=== PATIENT | male | born 1945 | race Caucasian/White ===

== ENCOUNTER 2017-07-02 09:19 | Emergency (ER) | payer MEDICARE, OTHER ==
[~2017-07-02] VITALS: Wt 68.9 kg
[2017-07-02 09:50] LABS: MODE ROOM AIR; MetHgb Venous 0.2 %; Sample Type Blood venous; Venous COHb 0.2 %; Venous Fraction OxyHgb 49.1 %; Venous Total Hemglobin 15.8 g/dl
[2017-07-02 10:09] LABS: BASOPHIL # 0.1 10^3/ul (0.0-0.1); BASOPHILS % 0.7 % (0.0-2.0); EOSINOPHILS % 0.1 % (0.0-7.0); HEMATOCRIT 42.5 % (42.0-52.0); HEMOGLOBIN 14.3 g/dl (14.0-18.0); LYMPHOCYTES # 1.3 10^3/ul (0.8-2.9); LYMPHOCYTES % 10.9 % (15.0-51.0); MEAN CORPUSCULAR HEMOGLOBIN 29.9 pg (29.0-33.0); MEAN CORPUSCULAR HGB CONC 33.6 g/dl (32.0-37.0); MEAN CORPUSCULAR VOLUME 88.7 fl (82.0-101.0); MEAN PLATELET VOLUME 10.4 fl (7.4-10.4); MONOCYTE # 0.6 10^3/ul (0.3-0.9); MONOCYTES % 5.1 % (0.0-11.0); NEUTROPHIL # 10.1 10^3/ul (1.6-7.5); NEUTROPHILS % 82.8 % (39.0-77.0); PLATELET COUNT 343 10^3/UL (140-415); RED BLOOD COUNT 4.79 10^6/ul (4.70-6.10); RED CELL DISTRIBUTION WIDTH 12.3 % (11.5-14.5); WHITE BLOOD COUNT 12.3 10^3/ul (4.8-10.8)
[2017-07-02 10:28] LABS: CALCIUM 9.5 mg/dl (8.4-10.2); CREATININE 0.93 mg/dl (0.61-1.24); POTASSIUM 4.6 mmol/L (3.5-5.1)
[2017-07-02 10:39] LABS: ADD UMIC NO; UR ASCORBIC ACID NEGATIVE (NEGATIVE); UR BILIRUBIN (Dip) NEGATIVE (NEGATIVE); UR BLOOD (Dip) NEGATIVE (NEGATIVE); UR CLARITY CLEAR (CLEAR); UR COLOR STRAW (YELLOW); UR GLUCOSE (Dip) 3+ mg/dL (NEGATIVE); UR KETONES (Dip) 2+ mg/dL (NEGATIVE); UR LEUKOCYTE ESTERASE (Dip) NEGATIVE Leu/ul (NEGATIVE); UR NITRITE (Dip) NEGATIVE (NEGATIVE); UR SPECIFIC GRAVITY (Dip) 1.029 (1.003-1.030); UR TOTAL PROTEIN (Dip) NEGATIVE (NEGATIVE); UR UROBILINOGEN (Dip) NEGATIVE (NEGATIVE)
[2017-07-02 10:45] VITALS: RESP 18
[2017-07-02 11:34] VITALS: BP 137/83; PULSE 74
[2017-07-02] MEDS ORDERED: LEVO112T57 PO (11:51)
[2017-07-02] MEDS ORDERED: DONE10TA7 PO ×2 (11:52→13:22)
[2017-07-02] MEDS ORDERED: AMLO5TAB4 PO (11:52)
[2017-07-02] MEDS ORDERED: INSU100C SQ (11:53)
[2017-07-02] MEDS ORDERED: VALS320T11 PO (11:54)
[2017-07-02] MEDS ORDERED: ESOM20CA PO (11:54)
[2017-07-02] MEDS ORDERED: FINA5TAB4 PO (11:54)
--- NOTE | 2017-07-02 11:54 | ERD ---
ER Documentation Chief Complaint Chief Complaint PT OVERDOSED ON HOME MEDS HPI This is a very pleasant 71-year-old male who is visiting from out of town who accidentally took an extra doses of his regular medications. The patient took 5 tablets of his daily donepezil and 5 tablets of his daily atorvastatin. This was approximately 1.5 hours prior to arrival. The family called poison control center who recommended that the patient come to the emergency room for evaluation observation. This is not an intentional overdose. The patient accidentally took this medication. They are very clear that the patient only took 5 tablets as this was his number of tablets brought from home. The patient does have hyperglycemia at triage but states that he has not had his morning medications. He is an insulin-dependent diabetic. At this point he denies any headache chest pain or shortness breath, no nausea or vomiting. He has no symptoms. ROS All systems reviewed and are negative except as per history of present illness. Medications Home Meds Active Scripts Donepezil* (Donepezil*) 10 Mg Tablet, 10 MG PO DAILY, #7 TAB Prov:SHANE VERDUGO MD 07/02/17 Atorvastatin Calcium* (Atorvastatin Calcium*) 20 Mg Tablet, 20 MG PO DAILY, #7 TAB Prov:SHANE VERDUGO MD 07/02/17 Reported Medications Ipratropium [place]* (Atrovent HFA*) 12.9 Gm Aer.w.adap, 2 PUFF INHALATION QID, #1 INHALER 07/02/17 Insulin Glargine* (Lantus*) 100 Unit/Ml Soln, 0-20 UNIT SC DAILY, #1 VIAL 07/02/17 Valsartan* (Diovan*) 320 Mg Tablet, 320 MG PO DAILY, TAB 07/02/17 Esomeprazole Mag Trihydrate (Nexium) 20 Mg Capsule.dr, 20 MG PO AC BREAKFAST, # 30 CAP 07/02/17 Finasteride* (Finasteride*) 5 Mg Tablet, 5 MG PO DAILY, TAB 07/02/17 Insulin Lispro (Humalog) 100 Unit/1 Ml Cartridge, 0-20 UNIT SQ AC MEALS 07/02/17 Donepezil* (Aricept*) 10 Mg Tablet, 10 MG PO DAILY, TAB 07/02/17 Amlodipine Besylate* (Norvasc*) 5 Mg Tablet, 5 MG PO DAILY, TAB 07/02/17 Levothyroxine Sodium* (Levothyroxine Sodium*) 112 Mcg Tablet, 112 MCG PO BEFORE BREAKFAST, #30 TAB 07/02/17 Allergies Allergies: Coded Allergies: No Known Allergy (Unverified , 07/02/17) FmHx Family History: diabetes Physical Exam Vitals Vital Signs Date Time Temp Pulse Resp B/P Pulse Ox O2 Delivery O2 Flow Rate FiO2 07/02/17 11:34 74 137/83 07/02/17 10:45 78 18 171/74 07/02/17 09:23 98.1 86 17 186/80 99 Physical Exam General: Well developed, well nourished, no acute distress Head: Normocephalic, atraumatic. Eyes: Pupils equally reactive, EOM intact ENT: Moist mucous membranes Neck: Supple, no lymphadenopathy Respiratory: Lungs clear bilaterally, no distress Cardiovascular: RRR, no murmurs, rubs, or gallops Abdominal: Soft, non-tender, non-distended, no peritoneal signs : Deferred MSK: No edema, no unilateral swelling, 5/5 strength Neurologic: Alert and oriented, moving all extremities, normal speech, no focal weakness, no cerebellar signs Skin: No rash Psych: Normal mood Result Diagram: 07/02/17 0949 07/02/17 0949 Results 24 hrs Laboratory Tests Test 07/02/17 09:33 07/02/17 09:49 07/02/17 10:25 Blood Gas Specimen Source Blood venous Arterial Blood Date Drawn 07/02/2017 9:40:16 AM Arterial Blood Gas Puncture Site VENOUS LINE Sebastian Test N/A Venous Blood pH 7.330 Venous Blood pCO2 (Temp Corrected) 41.0mmHG Venous Blood pO2 (Temp Corrected) 27.5mmHG Venous Blood HCO3 21.1mmol/L Venous Blood Oxygen Saturation 49.3mmHG Venous Blood Base Excess -4.5mmol/L Venous Blood Total Hemoglobin 15.8g/dl Venous Blood Oxyhemoglobin 49.1% Venous Blood Methemoglobin 0.2% Carboxyhemoglobin 0.2% Blood Gas Temperature 37.0C Blood Gas Modality ROOM AIR FiO2 21.0% Blood Gas Notified Whom Elizabeth Blood Gas Notified Time 07/02/2017 9:49:55 AM White Blood Count 12.310^3/ul Red Blood Count 4.7910^6/ul Hemoglobin 14.3g/dl Hematocrit 42.5% Mean Corpuscular Volume 88.7fl Mean Corpuscular Hemoglobin 29.9pg Mean Corpuscular Hemoglobin Concent 33.6g/dl Red Cell Distribution Width 12.3% Platelet Count 65378^3/UL Mean Platelet Volume 10.4fl Neutrophils % 82.8% Lymphocytes % 10.9% Monocytes % 5.1% Eosinophils % 0.1% Basophils % 0.7% Nucleated Red Blood Cells % 0.0/100WBC Neutrophils # 10.110^3/ul Lymphocytes # 1.310^3/ul Monocytes # 0.610^3/ul Eosinophils # 0.010^3/ul Basophils # 0.110^3/ul Nucleated Red Blood Cells # 0.010^3/ul Sodium Level 139mmol/L Potassium Level 4.6mmol/L Chloride Level 99mmol/L Carbon Dioxide Level 25mmol/L Anion Gap 20 Blood Urea Nitrogen 24mg/dl Creatinine 0.93mg/dl Glucose Level 468mg/dl Calcium Level 9.5mg/dl Urine Color STRAW Urine Clarity CLEAR Urine pH 5.0 Urine Specific [place] 1.029 Urine Ketones 2+mg/dL Urine Nitrite NEGATIVEmg/dL Urine Bilirubin NEGATIVEmg/dL Urine Urobilinogen NEGATIVEmg/dL Urine Leukocyte Esterase NEGATIVELeu/ul Urine Hemoglobin NEGATIVEmg/dL Urine Glucose 3+mg/dL Urine Total Protein NEGATIVEmg/dl Procedures/MDM EKG, MONITORS, & DIAGNOSTIC IMAGING: EKG: I reviewed and interpreted a 12-lead EKG. Rhythm: Normal sinus rhythm Ectopy: None Intervals: No abnormalities, normal QRS and QTC ST segments: No elevations or depressions T waves: No contiguous inversions LAB INTERPRETATION: Hyperglycemia without evidence of diabetic ketoacidosis MEDICAL DECISION MAKING: The patient presents with accidental ingestion of 5 tablets of donepezil and 5 tablets of atorvastatin. This is his regular medication and regular dosing. He has no myalgias no nausea or vomiting. He has slight hypertension which can be seen in donepezil ingestion. I was able to speak to poison control center. The strongest concern is for bradycardia. The patient has no bradycardia in the emergency room, no evidence of QRS or QTC prolongation. The patient is otherwise asymptomatic. Recommendation is for 4 hours of observation. The patient is not a candidate for activated charcoal given greater than 1 hours since ingestion. ER COURSE: The patient has hyperglycemia but did not take his regular medications. He has no evidence of diabetic ketoacidosis and was advised to take his regular sliding scale dose. This was provided by the family in the emergency room. He was given a complex carbohydrate meal. The patient will be observed for 4 hours to rule out bradycardia or clinically significant toxicologic process related to his ingestion. If the patient does not have any symptoms related to this ingestion the patient can be safely discharged with close follow-up. The family is requesting refills for 5 tablets of donepezil and atorvastatin as this is the only medication they brought for their trip. Observation Note: Indication: Rule out toxicologic ingestion Duration: Greater than 4 hours Family history: Diabetes The patient was observed with serial exams over the above timeframe. The patient continued to be well-appearing, and observation continued without complication. I kept the patient and/or family informed of laboratory and diagnostic imaging results throughout the emergency room course. DISPOSITION PLAN: We discussed follow up with the patient's primary care doctor within 24 to 48 hours as needed. We also discussed return to the emergency room for worsening symptoms or worsening condition. Outpatient referral: [None required] Discharge Medications: Home dosing of Aricept and atorvastatin for 7 days Departure Diagnosis: Primary Impression: Accidental overdose Encounter type: initial encounter Qualified Code: T50.901A - Accidental overdose, initial encounter Additional Impression: Hyperglycemia Condition: Stable SHANE VERDUGO MD Jul 02, 2017 11:54
[2017-07-02] MEDS ORDERED: LANT3I SC (11:55)
[2017-07-02] MEDS ORDERED: IPRA12.93 INHALATION (11:56)
[2017-07-02] MEDS ORDERED: ATOR20TA38 PO (13:22)
== END 2017-07-02 14:06 | disposition home or self-care (01) ==
LOC: E/R 09:19
DX: T44.0X1A Poisoning by anticholinesterase agents, accidental (unintentional), initial encounter (principal); T46.6X1A Poisoning by antihyperlipidemic and antiarteriosclerotic drugs, accidental (unintentional), initial encounter; E11.9 Type 2 diabetes mellitus without complications; Z79.4 Long term (current) use of insulin
CPT/HCPCS: 36415; 80048; 81003; 82803; 85025

== ENCOUNTER 2017-07-04 17:47 | Inpatient (IN) | payer MEDICARE, OTHER ==
[~2017-07-04] VITALS: Ht 167.6 cm; Wt 66.0 kg
[~2017-07-04 17:47] MED LIST: AMLO5TAB4 PO; ATOR20TA38 PO; DONE10TA7 PO; ESOM20CA PO; FINA5TAB4 PO; INSU100C SQ; IPRA12.93 INHALATION; LANT3I SC; LEVO112T57 PO; VALS320T11 PO
[2017-07-04] MEDS ORDERED: SOD CHLORIDE 0.9% 1,000 ML IV STA (18:26)
[2017-07-04] MEDS ORDERED: INSULIN REGULAR 10 ML INJ SC ONE (18:30)
--- NOTE | 2017-07-04 18:42 | ERD ---
ER Documentation Chief Complaint Chief Complaint vomitting today, seen on wednesday for accidental od of medication HPI Patient is a 71-year-old male with history of type 1 diabetes and dementia who presents to the ER for 2 episodes of vomiting and appearing to be slightly off balance today. His states that he has wanted to lie down and feels better when he lies down. She denies fever, diarrhea, abdominal pain, headache, slurred speech, focal weakness. The patient was seen in the ER for an accidental overdose 2 days ago, during which she took 5 days worth of his medication. Yesterday he appeared well and had no complaints. ROS All systems reviewed and are negative except as per history of present illness. Medications Home Meds Active Scripts Atorvastatin Calcium* (Atorvastatin Calcium*) 20 Mg Tablet, 20 MG PO DAILY, #7 TAB Prov:SHANE VERDUGO MD 07/02/17 Reported Medications Insulin Lispro (Humalog Kwikpen) 200 Unit/1 Ml Insuln.pen, 0 SQ AC MEALS, EA SLIDING SCALE 07/04/17 Insulin Glargine* (Lantus*) 100 Unit/Ml Soln, 0 SC DAILY, #1 VIAL SLIDING SCALE 07/04/17 Ipratropium [place]* (Atrovent HFA*) 12.9 Gm Aer.w.adap, 2 PUFF INHALATION QID, #1 INHALER 07/02/17 Valsartan* (Diovan*) 320 Mg Tablet, 320 MG PO DAILY, TAB 07/02/17 Esomeprazole Mag Trihydrate (Nexium) 20 Mg Capsule.dr, 20 MG PO AC BREAKFAST, # 30 CAP 07/02/17 Finasteride* (Finasteride*) 5 Mg Tablet, 5 MG PO DAILY, TAB 07/02/17 Donepezil* (Aricept*) 10 Mg Tablet, 10 MG PO DAILY, TAB 07/02/17 Amlodipine Besylate* (Norvasc*) 5 Mg Tablet, 5 MG PO DAILY, TAB 07/02/17 Levothyroxine Sodium* (Levothyroxine Sodium*) 112 Mcg Tablet, 112 MCG PO BEFORE BREAKFAST, #30 TAB 07/02/17 Discontinued Reported Medications Insulin Glargine* (Lantus*) 100 Unit/Ml Soln, 0-20 UNIT SC DAILY, #1 VIAL 07/02/17 Insulin Lispro (Humalog) 100 Unit/1 Ml Cartridge, 0-20 UNIT SQ AC MEALS 07/02/17 Discontinued Scripts Donepezil* (Donepezil*) 10 Mg Tablet, 10 MG PO DAILY, #7 TAB Prov:SHANE VERDUGO MD 07/02/17 Allergies Allergies: Coded Allergies: Penicillins (Unverified Allergy, Unknown, rash, 07/04/17) codeine (Unverified Allergy, Unknown, 07/04/17) PMhx/Soc Past medical history: Diabetes mellitus, hypertension, hypothyroidism, dementia , BPH Past surgical history: Resection of oral cancer, shoulder surgery, skin cancer resection Social history: Drinks occasional alcohol, remote history of small amount of tobacco smoking FmHx Noncontributory Physical Exam Vitals Vital Signs Date Time Temp Pulse Resp B/P Pulse Ox O2 Delivery O2 Flow Rate FiO2 07/04/17 20:30 109 18 132/57 100 Room Air 07/04/17 18:14 94 148/55 97 Room Air 07/04/17 17:48 98.4 95 18 132/61 97 Physical Exam Const: Alert, no acute distress Head: Atraumatic Eyes: Normal Conjunctiva, No pallor, no icterus ENT: Normal External Ears, Nose and Mouth. Dry mucous membranes Neck: Full range of motion..~ No meningismus. No JVD Resp: Clear to auscultation bilaterally, No wheezes, no rales Cardio: Bradycardia, irregularly irregular rhythm, no murmurs Abd: Soft, non tender, non distended. Skin: No petechiae or rashes Back: No midline or flank tenderness Ext: No cyanosis, or edema Neur: Awake and alert, Cranial nerves II through XII intact bilaterally, strength and sensation full in 4 extremities. No pronator drift, no dysmetria Psych: Normal Mood and Affect Result Diagram: 07/04/171909 Results 24 hrs Laboratory Tests Test 07/04/17 18:13 07/04/17 19:10 07/04/17 19:16 07/04/17 20:00 Bedside Glucose > 595mg/dL > 595mg/dL White Blood Count 17.610^3/ul Red Blood Count 4.5010^6/ul Hemoglobin 13.5g/dl Hematocrit 43.2% Mean Corpuscular Volume 96.0fl Mean Corpuscular Hemoglobin 30.0pg Mean Corpuscular Hemoglobin Concent 31.3g/dl Red Cell Distribution Width 12.5% Platelet Count 59663^3/UL Mean Platelet Volume 10.9fl Neutrophils % 88.2% Lymphocytes % 6.3% Monocytes % 4.3% Eosinophils % 0.0% Basophils % 0.5% Nucleated Red Blood Cells % 0.0/100WBC Neutrophils # 15.510^3/ul Lymphocytes # 1.110^3/ul Monocytes # 0.810^3/ul Eosinophils # 0.010^3/ul Basophils # 0.110^3/ul Nucleated Red Blood Cells # 0.010^3/ul Urine Color STRAW Urine Clarity CLEAR Urine pH 5.0 Urine Specific [place] 1.021 Urine Ketones 2+mg/dL Urine Nitrite NEGATIVEmg/dL Urine Bilirubin NEGATIVEmg/dL Urine Urobilinogen NEGATIVEmg/dL Urine Leukocyte Esterase NEGATIVELeu/ul Urine Microscopic RBC 3/HPF Urine Microscopic WBC 1/HPF Urine Bacteria FEW/HPF Urine Mucus FEW/HPF Urine Yeast (Budding) FEW/HPF Urine Hemoglobin 1+mg/dL Urine Glucose 3+mg/dL Urine Total Protein NEGATIVEmg/dl Test 07/04/17 20:15 Bedside Glucose 587mg/dL Current Medications Medications (Trade) Dose Ordered Sig/Ney Route PRN Reason Start Time Stop Time Status Last Admin Dose Admin Sodium Chloride (NS) 1,000 ml @ 1,000 mls/hr Q1H STAT IV 07/04/17 18:26 07/04/17 19:25 DC 07/04/17 19:18 Insulin Human Regular (Novolin-R) 10 unit ONCE ONCE SC 07/04/17 18:30 07/04/17 18:41 DC Insulin Human Lispro (Humalog) 10 unit ONCE ONCE SC 07/04/17 19:00 07/04/17 19:01 DC 07/04/17 19:20 Ondansetron HCl (Zofran Inj) 4 mg ONCE STAT IV 07/04/17 19:47 07/04/17 20:10 DC Metoclopramide HCl 10 mg 10 mg ONCE ONCE IV 07/04/17 20:30 07/04/17 20:31 DC 07/04/17 20:20 Sodium Chloride (NS) 1,000 ml @ 1,000 mls/hr Q1H ONCE IV 07/04/17 20:30 07/04/17 21:29 Procedures/MDM EKG read by me: Time 1843, rate 100 Rhythm: Normal sinus [place]: Normal Intervals: Normal ST-T waves: no ischemic changes, subtle nonspecific STT wave changes in lateral leads Ectopy: No Q-waves: No Impression: No evidence of ischemia or arrhythmia MDM: Patient is a 71-year-old male who presents to the ER with several episodes of vomiting and decreased energy for 1 day. His initially stated that his mental status was at baseline, which includes confusion due to underlying dementia. His daughter, however, states that he has been more confused today and is not following instructions appropriately. On my exam, the patient does not have any focal neurological findings. He does not have any speech abnormality. He does have some difficulty following commands and appears confused. His workup reveals hyperglycemia. Clinically he appears dehydrated. He has ketones on urinalysis. I am awaiting electrolytes to evaluate for renal insufficiency, DKA, and other abnormalities. His EKG is nonischemic. I am awaiting a troponin. CT scan of the head was performed, and on my preliminary evaluation, there is volume loss but no acute bleed or mass. A chest x-ray is pending. Serum ketones are pending. The patient was given IV fluids and subcutaneous insulin. His urine does not show signs of infection. He has leukocytosis but does not have physical exam findings suggestive of infectious source. He has normal vital signs. His vomiting may be due to underlying DKA, gastrointestinal infection, or gastroparesis. He has a benign abdominal exam. The patient was signed out to Dr. Putnam at the end of my shift with plan to follow-up on electrolytes and radiology reads, and admit the patient for further hydration and workup of altered mental status. Departure Diagnosis: Primary Impression: Nausea and vomiting Vomiting type: unspecified Vomiting Intractability: unspecified Qualified Code: R11.2 - Nausea and vomiting, intractability of vomiting not specified, unspecified vomiting type Additional Impressions: Hyperglycemia due to type 1 diabetes mellitus Dehydration Altered mental status Altered mental status type: coma Coma depth: Marjan coma 13-15 Coma timing : in the field (EMT or ambulance) Qualified Code: R40.2411 - [place] coma scale total score 13-15, in the field (EMT or ambulance) Condition: CINDY Kirkland MD Jul 04, 2017 18:42
[2017-07-04] MEDS ORDERED: LANT3I SC (18:46)
[2017-07-04] MEDS ORDERED: INSU200I SQ (18:47)
[2017-07-04] MEDS ORDERED: INSULIN LISPRO 100 UNIT/ML VIAL SC ONE (19:00)
[2017-07-04 19:25] LABS: BASOPHIL # 0.1 10^3/ul (0.0-0.1); BASOPHILS % 0.5 % (0.0-2.0); HEMATOCRIT 43.2 % (42.0-52.0); HEMOGLOBIN 13.5 g/dl (14.0-18.0); LYMPHOCYTES # 1.1 10^3/ul (0.8-2.9); LYMPHOCYTES % 6.3 % (15.0-51.0); MEAN CORPUSCULAR HGB CONC 31.3 g/dl (32.0-37.0); MEAN PLATELET VOLUME 10.9 fl (7.4-10.4); MONOCYTE # 0.8 10^3/ul (0.3-0.9); MONOCYTES % 4.3 % (0.0-11.0); NEUTROPHIL # 15.5 10^3/ul (1.6-7.5); NEUTROPHILS % 88.2 % (39.0-77.0); PLATELET COUNT 387 10^3/UL (140-415); RED CELL DISTRIBUTION WIDTH 12.5 % (11.5-14.5); WHITE BLOOD COUNT 17.6 10^3/ul (4.8-10.8)
[2017-07-04] MEDS ORDERED: ONDANSETRON 4 MG INJ IV STA (19:47)
[2017-07-04] MEDS ORDERED: METOCLOPRAMIDE 10 MG INJ IV ONE (20:30)
[2017-07-04] MEDS ORDERED: SOD CHLORIDE 0.9% 1,000 ML IV ONE (20:30)
[2017-07-04 20:37] LABS: ADD UMIC YES; UR ASCORBIC ACID NEGATIVE (NEGATIVE); UR BACTERIA FEW /HPF (NONE SEEN); UR BILIRUBIN (Dip) NEGATIVE (NEGATIVE); UR BLOOD (Dip) 1+ mg/dL (NEGATIVE); UR BUDDING YEAST FEW /HPF (NONE SEEN); UR CLARITY CLEAR (CLEAR); UR COLOR STRAW (YELLOW); UR GLUCOSE (Dip) 3+ mg/dL (NEGATIVE); UR KETONES (Dip) 2+ mg/dL (NEGATIVE); UR LEUKOCYTE ESTERASE (Dip) NEGATIVE Leu/ul (NEGATIVE); UR MUCUS FEW /HPF (NONE SEEN); UR NITRITE (Dip) NEGATIVE (NEGATIVE); UR RBC 3 /HPF (0-5); UR SPECIFIC GRAVITY (Dip) 1.021 (1.003-1.030); UR TOTAL PROTEIN (Dip) NEGATIVE (NEGATIVE); UR UROBILINOGEN (Dip) NEGATIVE (NEGATIVE)
[2017-07-04 21:07] LABS: ALANINE AMINOTRANSFERASE 32 IU/L (13-69); ALBUMIN 4.2 g/dl (3.3-4.9); ALKALINE PHOSPHATASE 83 IU/L (42-121); ANION GAP 40 (8-16); ASPARTATE AMINO TRANSFERASE 36 IU/L (15-46); BILIRUBIN,INDIRECT 0.3 mg/dl (0-1.1); BILIRUBIN,TOTAL 0.3 mg/dl (0.2-1.3); BLOOD UREA NITROGEN 29 mg/dl (7-20); CALCIUM 9.7 mg/dl (8.4-10.2); CHLORIDE 101 mmol/L (97-110); SODIUM 140 mmol/L (135-144); TOTAL PROTEIN 7.2 g/dl (6.1-8.1)
[2017-07-04 21:22] LABS: GLUCOSE 673 mg/dl (70-220)
[2017-07-04] MEDS ORDERED: INSULIN HUMAN REGULAR 100 UNIT in SOD CHLORIDE 0.9% 99 ML IV STA (21:22)
[2017-07-04 21:23] LABS: CARBON DIOXIDE 5 mmol/L (21-31); POTASSIUM 6.3 mmol/L (3.5-5.1)
[2017-07-04 21:28] LABS: TROPONIN-I < 0.010 ng/ml (0.00-0.12)
[2017-07-04] MEDS ORDERED: LACTATED RINGER'S 1,000 ML IV ONE ×2 (21:30)
--- NOTE | 2017-07-04 21:41 | RADRPT ---
PROCEDURE: XR Chest. CLINICAL INDICATION: Shortness of breath. Weakness. TECHNIQUE: Single frontal view. COMPARISON: None. FINDINGS: The lungs are clear. The heart size is normal. There is calcification in the aorta consistent with atherosclerosis. There is no pleural effusion. There is no pneumothorax. IMPRESSION: 1. Atherosclerosis. 2. Otherwise normal chest radiograph. RPTAT: QQ .Torin Grover MD, MD Date Time Electronically viewed and signed by .Torin Grover MD, MD on 07/04/2017 21:40 .R/
--- NOTE | 2017-07-04 21:43 | RADRPT ---
PROCEDURE: Noncontrast CT Head. CLINICAL INDICATION: Altered level of consciousness TECHNIQUE: Noncontrast CT of the head was obtained. The administered radiation dose was CTDI vol = 45.01 mGy, DLP = 720.23 mGy-cm. One or more of the following dose reduction techniques were used: Au tomated exposure control, Adjustment of the mA and/or kV according to patient size, or Use of iterat susan reconstruction technique. COMPARISON: There are no similar studies submitted for comparison. FINDINGS: There is no acute intracranial hemorrhage, midline shift, or mass effect. The cerebral montes-white ma tter differentiation appears preserved. No extra-axial collection is seen. There is moderate diffuse cerebral volume loss with compensatory diffuse cerebral sulcal and ventricular enlargement. Mild lo w attenuation in the periventricular and deep cerebral white matter is nonspecific, but suggestive o f mild chronic microangiopathic change. The basal cisterns are preserved. There is mild diffuse cere bellar volume loss. There is intracranial calcific atherosclerotic disease involving the internal ca rotid arteries bilaterally. The visualized paranasal sinuses and mastoid air cells are clear. No dep ressed calvarial fracture or suspicious osseous lesion is identified. There is mild subcutaneous sof t tissue edema of the right frontal temporal scalp. IMPRESSION: 1. No evidence of an acute intracranial process. 2. Moderate diffuse cerebral volume loss and mild diffuse cerebellar volume loss. 3. Evidence of mild chronic microangiopathic cerebral white matter change. 4. Intracranial calcific atherosclerotic disease. 5. Mild subcutaneous soft tissue edema of the right frontal temporal scalp. RPTAT: HR[facility] Physician Coni Date Time Electronically viewed and signed by Physician Coni on 07/04/2017 21:43 REGULO/
[2017-07-04] MEDS ORDERED: INSULIN HUMAN REGULAR 50 UNIT in SOD CHLORIDE 0.9% 49.5 ML IV STA (21:48)
[2017-07-04 22:34] LABS: CALCIUM 9.3 mg/dl (8.4-10.2); CREATININE 1.29 mg/dl (0.61-1.24); POTASSIUM 5.9 mmol/L (3.5-5.1)
--- NOTE | 2017-07-04 22:57 | EN ---
Date/Time of Note Date/Time of Note DATE: 07/04/17 TIME: 22:50 ER Progress Note I was signed out the care of this elderly male with a very high sugar, and he was awaiting crucial laboratories. He had not had chemistries returned yet. I receive the chemistries and the patient had hyperkalemia as well as evidence of significant diabetic ketoacidosis. Mainly ordered additional IV fluids in the form of lactated Ringer's as were out of normal saline. I also started on insulin drip and ordered additional laboratories for treatment of DKA. Spoke at the bedside for at least 15 minutes with the patient's when many questions about diabetic ketoacidosis and how she could have possibly prevented it. Patient's first subsequent blood draw shows good progression to correction of the diabetic ketoacidosis. Return of the patient's bed to reassess his status and is improving. Spoke with Dr. Keller he will be admitting the patient to the intensive care unit. Care time greater than 35 minutes: This includes treatment of diabetic ketoacidosis, careful and copious fluid administration, use of insulin drip, interpretation of multiple recurrent laboratories and treatment of unstable vital signs, subsequently chart review, discussion with patient's and admitting doctor. This does not include any billable procedures. NATASHA HAUSER DO Jul 04, 2017 22:57
[2017-07-04] MEDS ORDERED: SOD CHLORIDE 0.9% 1,000 ML IV SCH (23:28)
[2017-07-04] MEDS ORDERED: DEXTROSE 50% 50 ML SYRINGE IV PRN ×2 (23:30)
[2017-07-04] MEDS ORDERED: ACETAMINOPHEN 650MG/20.3ML CUP PO PRN (23:30)
[2017-07-04] MEDS ORDERED: INSULIN HUMAN REGULAR 50 UNIT in SOD CHLORIDE 0.9% 49.5 ML IV SCH (23:30)
[2017-07-04] MEDS: ACCU-CHEK XX SCH (23:30)
[2017-07-05] VITALS (23 sets, daily range): BP systolic 112–142; BP diastolic 48–99; PULSE 69–95; RESP 13–25; TEMP 98.5; Ht 167.6 cm; Wt 66.0 kg
[2017-07-05] LABS: Arterial Base Excess -12.5 mmol/L (-3.0-3); Arterial COHb 0.3 % (0.0-3.0); Arterial Fraction of Oxyhgb 97.9 % (93.0-99.0); Arterial HCO3 10.9 mmol/L (22.0-26.0); Arterial MetHb 0.3 % (0.0-1.5); Arterial Total Hemglobin 12.4 g/dl (12.0-18.0); MODE ROOM AIR
[2017-07-05] MEDS ORDERED: LACTATED RINGER'S 1,000 ML IV SCH (00:28)
[2017-07-05] MEDS: ACCU-CHEK XX SCH ×11 (00:30→10:27)
[2017-07-05 00:49] LABS: CALCIUM 9.4 mg/dl (8.4-10.2); CREATININE 1.02 mg/dl (0.61-1.24); POTASSIUM 5.1 mmol/L (3.5-5.1)
[2017-07-05] MEDS: ALBUTEROL/IPRATROPIUM (NEB) 3 ML AMP NEB SCH ×4 (01:00→13:16)
[2017-07-05] MEDS ORDERED: FLUCONAZOLE 100 MG/NS (PMX) 50 ML IVPB SCH ×2 (01:00)
[2017-07-05] MEDS ORDERED: SOD CHLORIDE 0.9% IV SCH (01:28)
[2017-07-05] MEDS ORDERED: POTASSIUM CHLORIDE IV SCH (01:28)
[2017-07-05] MEDS: DEXTROSE 5%-0.45% NACL 1,000 ML IV SCH ×2 (03:18→13:14)
[2017-07-05 03:47] LABS: CREATININE 0.89 mg/dl (0.61-1.24); POTASSIUM 4.2 mmol/L (3.5-5.1)
[2017-07-05 04:58] LABS: AADO2 Arterial 17.8 mmHg (7.0-24.0); Arterial Base Excess -2.8 mmol/L (-3.0-3); Arterial COHb 0.3 % (0.0-3.0); Arterial Fraction of Oxyhgb 96.8 % (93.0-99.0); Arterial HCO3 20.5 mmol/L (22.0-26.0); Arterial MetHb 0.3 % (0.0-1.5); Arterial Total Hemglobin 12.2 g/dl (12.0-18.0); MODE ROOM AIR
[2017-07-05] MEDS: CIPROFLOXACIN 400MG/D5W 200 ML IVPB SCH ×3 (05:39→09:57)
[2017-07-05 05:48] LABS: ALBUMIN 3.3 g/dl (3.3-4.9); ALBUMIN/GLOBULIN RATIO 1.37; BILIRUBIN,INDIRECT 0.4 mg/dl (0-1.1); BILIRUBIN,TOTAL 0.4 mg/dl (0.2-1.3); CALCIUM 8.8 mg/dl (8.4-10.2); CREATININE 0.84 mg/dl (0.61-1.24); MAGNESIUM 2.1 mg/dl (1.7-2.5); PHOSPHORUS 1.9 mg/dl (2.5-4.9); POTASSIUM 3.8 mmol/L (3.5-5.1); TOTAL PROTEIN 5.7 g/dl (6.1-8.1)
--- NOTE | 2017-07-05 06:32 | HP ---
Date/Time of Note Date/Time of Note DATE: 07/05/17 TIME: 06: Assessment/Plan VTE Prophylaxis VTE Prophylaxis Intervention: heparin Lines/Catheters IV Catheter Type (from Nrs): Peripheral IV Urinary Cath still in place: No Assessment/Plan Assessment/Plan ASSESSMENT 71-year-old male with a history of hypertension, type 1 diabetes, hypothyroidism , dyslipidemia, dementia, BPH with nausea/vomiting and generalized weakness found to be in severe DKA PLAN Insulin with DKA protocol ICU admission Correct electrolytes as needed Resume outpatient medications HPI/ROS Admit Date/Time Admit Date/Time Jul 04, 2017 at 21:51 Hx of Present Illness This is a 71-year-old male with a history of hypertension, type 1 diabetes, hypothyroidism, dyslipidemia, dementia, BPH who presents to the ER complaining of nausea/vomiting and generalized weakness. When he presented to the ER, he was found to be in severe DKA and was started on insulin was DKA protocol. Patient seems to be compliant with his medications. PMH/Family/Social Social History Smoking Status: Unknown if ever smoked Exam/Review of Systems Vital Signs Vitals Vital Signs Date Time Temp Pulse Resp B/P Pulse Ox O2 Delivery O2 Flow Rate FiO2 07/05/17 05:30 89 14 138/55 100 07/05/17 05:05 21 07/05/17 01:00 98.0 Room Air Intake and Output 07/04/17 07/04/17 07/05/17 14:59 22:59 06:59 Output Total 700 ml Balance -700 ml Exam Constitutional: other (No acute distress) Head: atraumatic, normocephalic Eyes: EOMI, PERRL Respiratory: clear to auscultation, normal air movement Cardiovascular: nl pulses, regular rate and rhythm Gastrointestinal: non-tender, soft Extremities: normal pulses Labs Result Diagram: 07/04/17 1910 07/05/17 0450 Medications Medications Current Medications Acetaminophen (Tylenol Liquid) 650 mg Q6H PRN PO PAIN LEVEL 1-3 OR FEVER; Start 07/04/17 at 23:30 Famotidine (Pepcid Iv) 20 mg Q12 IV ; Start 07/05/17 at 09:00 Heparin Sodium (Porcine) (Heparin (5000 Units/0.5 ml)) 5,000 unit Q12 SC ; Start 07/05/17 at 09:00 Dextrose (D50w Syringe) 50 ml Q15M PRN IV For BS 50 or less; Start 07/04/17 at 23:30 Dextrose (D50w Syringe) 25 ml Q15M PRN IV BS between 50-70; Start 07/04/17 at 23:30 Diagnostic Test (Pha) 1 ea 1 ea Q1H XX Last administered on 07/05/17 05:39; Admin Dose 1 EA; Start 07/04/17 at 23:30 Ciprofloxacin/ Dextrose 200 ml @ 200 mls/hr Q12 IVPB Last administered on 05:39; Admin Dose 200 MLS/HR; Start 07/05/17 at 00:00 Fluconazole/ Sodium Chloride 50 ml @ 50 mls/hr Q24H IVPB Last administered on 07/05/17 02:34; Admin Dose 50 MLS/HR; Start 07/05/17 at 01:00 Dextrose/Sodium Chloride (D5-1/2ns) 1,000 ml @ 100 mls/hr Q10H IV Last administered on 07/05/17 03:18; Admin Dose 100 MLS/HR; Start 07/05/17 at 03: 00 CHINEDU LACY MD Jul 05, 2017 06:32
[2017-07-05] MEDS ORDERED: INSULIN HUMAN REGULAR 100 UNIT in SOD CHLORIDE 0.9% 99 ML IV SCH (08:00)
[2017-07-05] MEDS ORDERED: DEXTROSE 50% 50 ML SYRINGE IV PRN ×4 (08:00→11:00)
[2017-07-05] MEDS ORDERED: FAMOTIDINE 20 MG INJ IV SCH (09:00)
[2017-07-05] MEDS ORDERED: HEPARIN 5,000 UNIT/0.5 ML VIAL SC SCH (09:00)
[2017-07-05] MEDS ORDERED: GLUCOSE GEL 15 GRAM TUBE PO PRN ×2 (11:00)
[2017-07-05] MEDS ORDERED: LEVOTHYROXINE 100 MCG TAB PO ONE (11:00)
[2017-07-05] MEDS ORDERED: GLUCOSE GEL 15 GRAM TUBE BUCCAL PRN (11:00)
[2017-07-05] MEDS ORDERED: GLUCAGON 1 MG INJ IM PRN (11:00)
[2017-07-05] MEDS ORDERED: INSULIN GLARGINE [LANtus] 3 ML PEN SC ONE (11:00)
[2017-07-05] MEDS ORDERED: INSULIN ASPART [NOVOLOG] 3 ML PEN SC SCH ×2 (11:30)
--- NOTE | 2017-07-05 15:12 | PDOCDIS ---
Discharge Instructions DIAGNOSIS Discharge Diagnosis DKA CONDITION Patient Condition: Good HOME CARE INSTRUCTIONS: Special Diet: CARB CONTROLLED FOLLOW UP/APPOINTMENTS Follow-up Plan Resume your insulin as prescribed by your doctor after discharge. You have already been given your long acting insulin Lantus (glargine) today, so do not resume this medication until tomorrow, but you should resume your meal time insulin normally today. Return to the hospital if you have any concerning symptoms CINDY ROTH MD Jul 05, 2017 15:12
--- NOTE | 2017-07-05 15:14 | DS ---
Date/Time of Note Date/Time of Note DATE: 07/05/17 TIME: 15:12 Discharge Summary Admission/Discharge Info Admit Date/Time Jul 04, 2017 at 21:51 Discharge Date/Time Discharge Diagnosis DKA Patient Condition: Fair Hospital Course The patient was found to be in DKA. He was treated with IV insulin and his DKA very promptly resolved. By the morning following admission, his gap had close, sugars normalized, eating and driknign normal and per his family he was back at baseline. He had missed dosage at home given his recent travel to [place] from [place]. He and family very much wanted to be discharged today. He was given lantus today and instructed to resume lantus tomorrow but resume regular insulin today. Home Meds Active Scripts Atorvastatin Calcium* (Atorvastatin Calcium*) 20 Mg Tablet, 20 MG PO DAILY, #7 TAB Prov:SHANE VERDUGO MD 07/02/17 Reported Medications Insulin Lispro (Humalog Kwikpen) 200 Unit/1 Ml Insuln.pen, 0 SQ AC MEALS, EA SLIDING SCALE 07/04/17 Insulin Glargine* (Lantus*) 100 Unit/Ml Soln, 0 SC DAILY, #1 VIAL SLIDING SCALE 07/04/17 Ipratropium [place]* (Atrovent HFA*) 12.9 Gm Aer.w.adap, 2 PUFF INHALATION QID, #1 INHALER 07/02/17 Valsartan* (Diovan*) 320 Mg Tablet, 320 MG PO DAILY, TAB 07/02/17 Esomeprazole Mag Trihydrate (Nexium) 20 Mg Capsule.dr, 20 MG PO AC BREAKFAST, # 30 CAP 07/02/17 Finasteride* (Finasteride*) 5 Mg Tablet, 5 MG PO DAILY, TAB 07/02/17 Donepezil* (Aricept*) 10 Mg Tablet, 10 MG PO DAILY, TAB 07/02/17 Amlodipine Besylate* (Norvasc*) 5 Mg Tablet, 5 MG PO DAILY, TAB 07/02/17 Levothyroxine Sodium* (Levothyroxine Sodium*) 112 Mcg Tablet, 112 MCG PO BEFORE BREAKFAST, #30 TAB 07/02/17 Discontinued Reported Medications Insulin Glargine* (Lantus*) 100 Unit/Ml Soln, 0-20 UNIT SC DAILY, #1 VIAL 07/02/17 Insulin Lispro (Humalog) 100 Unit/1 Ml Cartridge, 0-20 UNIT SQ AC MEALS 07/02/17 Discontinued Scripts Donepezil* (Donepezil*) 10 Mg Tablet, 10 MG PO DAILY, #7 TAB Prov:SHANE VERDUGO MD 07/02/17 Follow-up Plan Resume your insulin as prescribed by your doctor after discharge. You have already been given your long acting insulin Lantus (glargine) today, so do not resume this medication until tomorrow, but you should resume your meal time insulin normally today. Return to the hospital if you have any concerning symptoms Primary Care Provider Not On Staff Doctor Time spent on discharge: > 30 minutes Pending Labs Laboratory Tests Test 07/04/17 18:13 07/04/17 19:10 07/04/17 19:16 07/04/17 19:45 Bedside Glucose > 595mg/dL (70-220) > 595mg/dL (70-220) White Blood Count 17.610^3/ul (4.8-10.8) Red Blood Count 4.5010^6/ul (4.70-6.10) Hemoglobin 13.5g/dl (14.0-18.0) Hematocrit 43.2% (42.0-52.0) Mean Corpuscular Volume 96.0fl (82.0-101.0) Mean Corpuscular Hemoglobin 30.0pg (29.0-33.0) Mean Corpuscular Hemoglobin Concent 31.3g/dl (32.0-37.0) Red Cell Distribution Width 12.5% (11.5-14.5) Platelet Count 97981^3/UL (140-415) Mean Platelet Volume 10.9fl (7.4-10.4) Neutrophils % 88.2% (39.0-77.0) Lymphocytes % 6.3% (15.0-51.0) Monocytes % 4.3% (0.0-11.0) Eosinophils % 0.0% (0.0-7.0) Basophils % 0.5% (0.0-2.0) Nucleated Red Blood Cells % 0.0/100WBC (0.0-0.0) Neutrophils # 15.510^3/ul (1.6-7.5) Lymphocytes # 1.110^3/ul (0.8-2.9) Monocytes # 0.810^3/ul (0.3-0.9) Eosinophils # 0.010^3/ul (0.0-0.5) Basophils # 0.110^3/ul (0.0-0.1) Nucleated Red Blood Cells # 0.010^3/ul (0.0-0.0) Sodium Level 140mmol/L (135-144) Potassium Level 6.3mmol/L (3.5-5.1) Chloride Level 101mmol/L (97-110) Carbon Dioxide Level 5mmol/L (21-31) Anion Gap 40 (8-16) Blood Urea Nitrogen 29mg/dl (7-20) Creatinine 1.40mg/dl (0.61-1.24) Glucose Level 673mg/dl (70-220) Calcium Level 9.7mg/dl (8.4-10.2) Total Bilirubin 0.3mg/dl (0.2-1.3) Direct Bilirubin 0.00mg/dl (0.00-0.20) Indirect Bilirubin 0.3mg/dl (0-1.1) Aspartate Amino Transf (AST/SGOT) 36IU/L (15-46) Alanine Aminotransferase (ALT/SGPT) 32IU/L (13-69) Alkaline Phosphatase 83IU/L (42-121) Troponin I < 0.010ng/ml (0.00-0.12) Total Protein 7.2g/dl (6.1-8.1) Albumin 4.2g/dl (3.3-4.9) Globulin 3.00g/dl (1.3-3.2) Albumin/Globulin Ratio 1.40 Test 07/04/17 20:00 07/04/17 20:15 07/04/17 20:22 07/04/17 21:56 Urine Color STRAW (YELLOW) Urine Clarity CLEAR (CLEAR) Urine pH 5.0 (5.0-9.0) Urine Specific [place] 1.021 (1.003-1.030) Urine Ketones 2+mg/dL (NEGATIVE) Urine Nitrite NEGATIVEmg/dL (NEGATIVE) Urine Bilirubin NEGATIVEmg/dL (NEGATIVE) Urine Urobilinogen NEGATIVEmg/dL (NEGATIVE) Urine Leukocyte Esterase NEGATIVELeu/ul (NEGATIVE) Urine Microscopic RBC 3/HPF (0-5) Urine Microscopic WBC 1/HPF (0-5) Urine Bacteria FEW/HPF (NONE SEEN) Urine Mucus FEW/HPF (NONE SEEN) Urine Yeast (Budding) FEW/HPF (NONE SEEN) Urine Hemoglobin 1+mg/dL (NEGATIVE) Urine Glucose 3+mg/dL (NEGATIVE) Urine Total Protein NEGATIVEmg/dl (NEGATIVE) Bedside Glucose 587mg/dL (70-220) Acetone Level (Chemistry) (NEGATIVE) Sodium Level 140mmol/L (135-144) Potassium Level 5.9mmol/L (3.5-5.1) Chloride Level 104mmol/L (97-110) Carbon Dioxide Level 8mmol/L (21-31) Anion Gap 34 (8-16) Blood Urea Nitrogen 29mg/dl (7-20) Creatinine 1.29mg/dl (0.61-1.24) Glucose Level 536mg/dl (70-220) Lactic Acid Level 5.7mmol/L (0.5-2.0) Calcium Level 9.3mg/dl (8.4-10.2) Test 07/04/17 22:27 07/04/17 23:31 07/04/17 23:35 07/05/17 00:11 Bedside Glucose 412mg/dL (70-220) 371mg/dL (70-220) Blood Gas Specimen Source Blood arterial Arterial Blood Date Drawn 07/04/2017 11:49:42 PM Arterial Blood pH (Temp corrected) 7.350 (7.350-7.450) Arterial Blood pCO2 (Temp correct) 20.2mmhg (35-45) Arterial Blood pO2 (Temp corrected) 135.5mmHG (80-90.0) Arterial Blood HCO3 10.9mmol/L (22.0-26.0) Arterial Blood Base Excess -12.5mmol/L (-3.0-3) Arterial Blood Oxygen Saturation 98.5mmHG (95.0-100.0) Sebastian Test N/A Arterial Blood Gas Puncture Site Right Brachial Arterial Blood Carboxyhemoglobin 0.3% (0.0-3.0) Arterial Blood Methemoglobin 0.3% (0.0-1.5) Oxyhemoglobin Percent 97.9% (93.0-99.0) Total Hemoglobin 12.4g/dl (12.0-18.0) Blood Gas Temperature 37.0C Blood Gas Actual Respiration Rate 22 Blood Gas Modality ROOM AIR FiO2 21.0% Blood Gas Critical Value Read Back Levi HAUSER MD Blood Gas Notified Whom Oziel WISEON [employer] Blood Gas Notified Time 07/05/2017 12:00:37 AM Sodium Level 143mmol/L (135-144) Potassium Level 5.1mmol/L (3.5-5.1) Chloride Level 110mmol/L (97-110) Carbon Dioxide Level 15mmol/L (21-31) Anion Gap 23 (8-16) Blood Urea Nitrogen 26mg/dl (7-20) Creatinine 1.02mg/dl (0.61-1.24) Glucose Level 250mg/dl (70-220) Hemoglobin A1c 8.3% (0-5.9) Calcium Level 9.4mg/dl (8.4-10.2) Test 07/05/17 01:42 07/05/17 02:42 07/05/17 03:20 07/05/17 03:37 Bedside Glucose 209mg/dL (70-220) 136mg/dL (70-220) 107mg/dL (70-220) Sodium Level 142mmol/L (135-144) Potassium Level 4.2mmol/L (3.5-5.1) Chloride Level 110mmol/L (97-110) Carbon Dioxide Level 21mmol/L (21-31) Anion Gap 15 (8-16) Blood Urea Nitrogen 24mg/dl (7-20) Creatinine 0.89mg/dl (0.61-1.24) Glucose Level 115mg/dl (70-220) Calcium Level 9.0mg/dl (8.4-10.2) Test 07/05/17 04:34 07/05/17 04:50 07/05/17 05:00 07/05/17 05:41 Bedside Glucose 85mg/dL (70-220) 78mg/dL (70-220) Sodium Level 142mmol/L (135-144) Potassium Level 3.8mmol/L (3.5-5.1) Chloride Level 112mmol/L (97-110) Carbon Dioxide Level 21mmol/L (21-31) Anion Gap 13 (8-16) Blood Urea Nitrogen 22mg/dl (7-20) Creatinine 0.84mg/dl (0.61-1.24) Glucose Level 73mg/dl (70-220) Calcium Level 8.8mg/dl (8.4-10.2) Phosphorus Level 1.9mg/dl (2.5-4.9) Magnesium Level 2.1mg/dl (1.7-2.5) Total Bilirubin 0.4mg/dl (0.2-1.3) Direct Bilirubin 0.00mg/dl (0.00-0.20) Indirect Bilirubin 0.4mg/dl (0-1.1) Aspartate Amino Transf (AST/SGOT) 31IU/L (15-46) Alanine Aminotransferase (ALT/SGPT) 33IU/L (13-69) Alkaline Phosphatase 55IU/L (42-121) Total Protein 5.7g/dl (6.1-8.1) Albumin 3.3g/dl (3.3-4.9) Globulin 2.40g/dl (1.3-3.2) Albumin/Globulin Ratio 1.37 Blood Gas Specimen Source Blood arterial Arterial Blood Date Drawn 07/05/2017 4:48:09 AM Arterial Blood pH (Temp corrected) 7.436 (7.350-7.450) Arterial Blood pCO2 (Temp correct) 31.1mmhg (35-45) Arterial Blood pO2 (Temp corrected) 94.7mmHG (80-90.0) Arterial Blood HCO3 20.5mmol/L (22.0-26.0) Arterial Blood Base Excess -2.8mmol/L (-3.0-3) Arterial Blood Oxygen Saturation 97.4mmHG (95.0-100.0) Sebastian Test N/A Arterial Blood Gas Puncture Site Right Brachial Arterial Blood Carboxyhemoglobin 0.3% (0.0-3.0) Arterial Blood Methemoglobin 0.3% (0.0-1.5) Blood Gas A-a O2 Differential 17.8mmHg (7.0-24.0) Oxyhemoglobin Percent 96.8% (93.0-99.0) Total Hemoglobin 12.2g/dl (12.0-18.0) Blood Gas Temperature 37.0C Blood Gas Actual Respiration Rate 16 Blood Gas Modality ROOM AIR FiO2 21.0% Blood Gas Notified Whom Oziel ROMERO RCP Blood Gas Notified Time 07/05/2017 4:58:49 AM Test 07/05/17 06:43 07/05/17 08:30 07/05/17 09:22 07/05/17 10:27 Bedside Glucose 134mg/dL (70-220) 104mg/dL (70-220) 158mg/dL (70-220) 141mg/dL (70-220) Test 07/05/17 11:33 07/05/17 12:33 07/05/17 13:49 Bedside Glucose 113mg/dL (70-220) 186mg/dL (70-220) 190mg/dL (70-220) CINDY ROTH MD Jul 05, 2017 15:14
[2017-07-06] MEDS ORDERED: ACCU-CHEK XX SCH (02:00)
== END 2017-07-05 16:35 | disposition home or self-care (01) | DRG 639 ==
LOC: E/R 17:47 → ICU 21:51
PROVIDERS: ADMIT Internal Medicine; ATTEND Internal Medicine
DX: E10.10 Type 1 diabetes mellitus with ketoacidosis without coma (principal); F03.90 Unspecified dementia, unspecified severity, without behavioral disturbance, psychotic disturbance, mood disturbance, and anxiety; I10 Essential (primary) hypertension; E03.9 Hypothyroidism, unspecified; E78.5 Hyperlipidemia, unspecified; N40.0 Benign prostatic hyperplasia without lower urinary tract symptoms; Z79.4 Long term (current) use of insulin; Z87.891 Personal history of nicotine dependence
CPT/HCPCS: 36415; 36600; 70450; 71010; 80048; 80053; 81001; 82010; 82803; 82962; 83036; 83605; 83735; 84100; 84484; 85025; 93005; 94640; 94664; 96372; 96374; 96375; J0744; J1450; J1644; J1815; J2765; J7030; J7042; J7120